=== PATIENT | female | born 1990 | race Caucasian/White ===

== ENCOUNTER 2018-10-14 01:00 | Inpatient (IN) | payer BC ==
[2018-10-14] MEDS ORDERED: fentaNYL 100 MCG/2 ML SDV ITHECAL ONE (01:54)
[2018-10-14] MEDS ORDERED: EPINEPHrine 1 MG/ML SDV ONE ×2 (01:54→04:56)
[2018-10-14] MEDS ORDERED: Misoprostol 400 MCG (4 X 100 MCG TAB) RECTAL PRN ×2 (02:20→12:17)
[2018-10-14] MEDS ORDERED: Carboprost Tromethamine 250 MCG/1 ML Amp IM PRN ×2 (02:20→12:17)
[2018-10-14] MEDS ORDERED: Ondansetron 4 MG/2 ML SDV IV PRN (02:20)
[2018-10-14] MEDS ORDERED: Sodium Chloride 0.9% 10 ML Syringe FLUSH PRN ×2 (02:20→12:17)
[2018-10-14] MEDS ORDERED: Acetaminophen 325 MG Tab PO PRN ×3 (02:20→12:45)
[2018-10-14] MEDS ORDERED: Methylergonovine 0.2 MG/1 ML Amp IM PRN (02:20)
[2018-10-14] MEDS ORDERED: Lidocaine 1% 30 ML SDV INJECT PRN (02:20)
[2018-10-14] MEDS ORDERED: Tranexamic Acid 1,000 MG in Sodium Chloride 0.9% 100 ML IV PRN ×2 (02:20→12:17)
[2018-10-14] MEDS ORDERED: Lactated Ringers 500 ML IV ONE (02:20)
[2018-10-14] MEDS ORDERED: Nalbuphine 10 MG/1 ML Vial IM STA (02:27)
[2018-10-14] MEDS ORDERED: Oxytocin/Normal Saline 30 UNIT/500 ML BAG IV SCH (02:30)
--- NOTE | 2018-10-14 04:31 | HP ---
Date: 10/14/17 CHIEF COMPLAINT: Increasing frequency and strength of contractions. SUBJECTIVE: The patient is a 27-year-old 1, para 0-0-0-0, currently at 40 weeks and 1 day gestation, based on an exact LMP of 01/05/2018. The patient had her membranes stripped at her clinic appointment this morning. She went for a long walk later and had sore and achy type pain and it felt like period cramping. She took a bath, after getting out of the bath, she was feeling contractions every couple of minutes; kind of felt like period cramping. Around 1730 tonight, they started really feeling like contractions and she was having them at 2 to 4.5 minutes apart. She had some mucousy discharge that was brown. No big gush of fluid. No bleeding. She got in the bath again when the contractions were strong and the contractions remained 2 to 3 minutes apart and felt stronger. They live 35 minutes away so they decided to come in. Denying any preeclampsia symptoms (no headaches, visual changes, edema). No vaginal bleeding. movement has remained excellent. LABS: Blood type B positive. Rubella immune. Syphilis nonreactive. Hep B nonreactive. HIV nonreactive. Gonorrhea and chlamydia negative. She had an abnormal 1 hour glucose tolerance test, 3 hour was within normal limits. Group B strep negative. Glucosuria off and on. PAST MEDICAL HISTORY: 1. Asthma, exercise-induced. 2. Irregular menstrual period, every 21 to 28, flow 7 days. This was before she was taking oral contraceptive (controlled with oral contraceptives). 3. Dysmenorrhea, controlled with oral contraceptives. 4. TMJ. 5. Chickenpox as a child. PAST SURGICAL HISTORY: [place] teeth extraction at age 16. FAMILY HISTORY: Paternal uncle, AML, leukemia. Paternal grandmother with cervical cancer. Maternal grandmother, [employer] usage. Paternal grandfather, depression. Maternal grandfather, diabetes, heart disease (pacemaker) and stroke. Father, high cholesterol, hypertension. Mother, migraine, unable to deliver vaginally, possibly from [place] exposure, reported prominent bone preventing delivery. Brother migraines. Paternal aunt with multiple sclerosis. Mother 1 spot of melanoma. Mother and maternal grandmother, hypothyroid. SOCIAL HISTORY: The patient lives with Jorge in [place]. This will be their 1st child. The patient works as an RN at [employer]. Pulse 8. MEDICATIONS: vitamin. ALLERGIES: Ceclor. REVIEW OF SYSTEMS: No shortness of breath, chest pain, headaches, change in vision, fever, vomiting, dysuria. Some nausea just started showing up with contractions. PHYSICAL EXAMINATION: Vital Signs: Pulse 77, temp 97.5, blood pressure 135/87, respiratory rate 20, heart rate 140s, category 1. Contractions every 2 minutes. General: The patient is managing contractions with Nubain currently. Desires intrathecal. HEENT: Grossly unremarkable. Neck: Supple. No adenopathy. Heart: Regular without murmur. Lungs: Clear to auscultation bilaterally. Abdomen: Gravid. Non-tender to palpation. Pelvic: Cervical exam per nurse is 3 cm dilated, 80% effaced, and -2 station. Bag of water intact on arrival. Spontaneous rupture of membranes occurred soon after arrival. Amniotic fluid was thick meconium stained. Extremities: No edema, erythema, or tenderness noted. Neurologic: Appropriate. ASSESSMENT: 1. G1, P0-0-0-0. 2. Forty weeks and 1 day gestation. 3. Full code. 4. Blood type B positive. GBS negative. Rubella immune. PLAN: The patient received Nubain and will receive an intrathecal for anesthesia as soon as possible. Anticipating vaginal delivery. We will monitor and make changes to plans when and if it becomes necessary. The patient was seen by myself and Dr. Alaina New. Assessment and plan are under advisement of Dr. New. Esteban Toledo, -[facility] /[id number] Patient seen and examined. Agree with note as scribed on my behalf by Esteban Toledo, MS3. -edge blacker 10/14/18 2321 MTDD
[2018-10-14] MEDS: Lactated Ringers 1,000 ML IV SCH ×2 (04:40→05:13)
[2018-10-14] MEDS ORDERED: fentaNYL 100 MCG/2 ML SDV ONE (04:55)
--- NOTE | 2018-10-14 05:34 | PCM.PRNOTE ---
- Free Text/Narrative Note: Requested to provide analgesia to full term patient in severe pain. Upon entering the room, patient is sitting on edge of bed complaining of severe abdominal/pelvic pain and discomfort. Procedure was discussed with patient including adverse outcomes and expectations. Pt consented to analgesia, SAB/ IT. Pt placed into a proper sitting position. Landmarks for SAB/IT were identified and marked. Hands were washed and appropriate PPE was applied. Back was prepped with betadine x3. A sterile, transparent, fenestrated drape was applied. Excess betadine was removed. Using 3 mL of a 1% lidocaine solution , a skin wheel was placed at the L2/L3 interspace. A 24 ga (4 inch) Pencan spinal needle was inserted until positive for CSF. Negative for heme or paresthesias. Injected fentanyl 30 mcg, sufentanil 25 mcg, and 8.25 mg of a 0.75% bupivacaine solution with an epi wash. Pt was placed left lateral position for approximately 20 minutes. There were zero complications or adverse outcomes. Will continue to monitor. Procedure Date & Time: 10/14/18 [id number]
[2018-10-14] MEDS ORDERED: Oxytocin 10 Units/1 ML SDV IM PRN (12:17)
[2018-10-14] MEDS ORDERED: Benzocaine/Menthol 20%-0.5% Spray 56 GM Canister TOP PRN (12:17)
[2018-10-14] MEDS ORDERED: Simethicone 80 MG Tab.Chew PO PRN (12:17)
[2018-10-14] MEDS: Ibuprofen 800 MG Tab PO PRN ×2 (13:39→21:15)
[2018-10-14] MEDS ORDERED: Zolpidem 5 MG Tab PO PRN (20:00)
[2018-10-14] MEDS: Docusate Sodium 100 MG Cap PO PRN (21:15)
[2018-10-15] MEDS: Ibuprofen 800 MG Tab PO PRN ×3 (06:15→21:55)
[2018-10-15] MEDS: Prenatal Multivitamin with Calcium/Folic Acid/Iron Tab PO SCH (08:16)
[2018-10-15] MEDS: Docusate Sodium 100 MG Cap PO PRN ×2 (08:16→21:55)
--- NOTE | 2018-10-15 10:25 | PN ---
DATE: 10/15/2018 SUBJECTIVE: Andreea is day 1 from spontaneous vaginal delivery with arrest of descent in 2nd stage of labor, requiring vacuum assistance. Delivered term female at 40 weeks and 2 days gestation, that required right posterior-lateral episiotomy. She has no complaints. She is tolerating activity, eating and urinating. She has passed flatus, but has not had a bowel movement yet. She is breast-feeding and it is going really well. She has minimal cramping. She is using ice pack pads, which help with her pain. She is also taking ibuprofen as needed. Small headache, the patient believes it is from fatigue. No changes in vision, no chest pain, no shortness of breath. OBJECTIVE: Vital Signs: Temperature 98.9, pulse rate 82, blood pressure 118/69, respiratory rate 16. General: The patient is alert, cooperative, in no acute distress. HEENT: Grossly normal. Heart: Regular rate and rhythm. Lungs: Clear to auscultation bilaterally. Abdomen: Uterus is palpated fingertip below the umbilicus. Soft abdomen. Nontender and nondistended. Extremities: No edema or erythema. Calves are nontender to palpation. Neurologic: Range of motion and strength in extremities are unremarkable. LAB: Hgb on admission 13; today 10.8 Platelets on admission: 146, today 134. ASSESSMENT: Andreea is a day 1 from spontaneous vaginal delivery with arrest of descent in 2nd stage of labor with vacuum assistance x3 to a term female infant at 40 weeks and 2 days. Required right posterior-lateral episiotomy. 1. , post vaginal delivery 2. Gestational thrombocytopenia. 3. Breast feeding mother PLAN: 1. Continue routine cares. 2. . 3. Planning for discharge tomorrow. The patient was seen today by myself and Dr. Alaina New. Assessment and plan are under advisement of Dr. Alaina New. Esteban Toledo MS-[facility] /[id number] Patient seen and examined. Agree with note as scribed on my behalf by Esteban Toledo MS3. -[facility] 10/17/18 0754 MTDD
--- NOTE | 2018-10-15 11:31 | DEL ---
DATE: 10/14/2018 PREPROCEDURE DIAGNOSES: 1. 40 and 2/7th weeks' intrauterine by LMP. 2. 1, para 0. 3. Blood type B positive, rubella immune, group B strep negative. 4. Gestational thrombocytopenia. 5. Temporomandibular joint. 6. Exercise-induced asthma. 7. Maternal exhaustion and arrest of descent as indication for vacuum assistance in stage 2. 8. Meconium-stained fluid. POSTPROCEDURE DIAGNOSES: 1. 40 and 27th weeks' intrauterine by LMP. 2. 1, now para 1-0-0-1. 3. Blood type B positive, rubella immune, group B strep negative. 4. Gestational thrombocytopenia. 5. Temporomandibular joint. 6. Exercise-induced asthma. 7. Maternal exhaustion and arrest of descent as indication for vacuum assistance. 8. Meconium-stained fluid. 9. Delivery of large for gestational age . 10.Asynclitic presentation. 11.Status post spontaneous vaginal delivery. 12.Repair of medio-lateral episiotomy. BRIEF HISTORY: The patient is a 27-year-old patient with the above-listed diagnoses, who presented to the hospital with spontaneous labor last night and went onto spontaneous rupture of membranes at 2:13 a.m. with thick meconium- stained fluid. She continued to progress nicely through labor and received an intrathecal for anesthesia when she was 5 cm dilated at around 5 a.m. and then went onto complete at 7:30. She was not feeling any pain nor did she have the ability to push well at that time, so she was allowed to labor down. Baby had intermittent Decels on about 3 occasions and decision was made to start with pushing to shorten stage II. After about the first hour of pushing, mother had significant maternal exhaustion without much further descent of the head, so vacuum assistance was felt to be indicated and beneficial for her. Exit strategy was available including going to a section if she should go on to a prolonged 2nd stage or any compromise were to develop. The patient was verbally prepared with discussion of alternatives, risks, and benefits of vacuum assistance including injury to her and/or the baby as well as other complications that would require surgical repair. Anesthesia was adequate as she was still quite numb. Probability of success was good. We were estimating an appropriate size baby and the pelvis was adequate, anticipating OA position and did not anticipate the baby was asynclitic until after the vacuum attempt had been terminated. She was +2 station. The maximum number of pop offs was predetermined as 3. Total vacuum time was 30 minutes. Pressure was maintained within the green zone and the type of kiwi was a mushroom. Exit strategy was readily available and the section team was alerted and the OR open and Dr. Welch aware that she may be called on an emergency basis. PROCEDURE DETAILS: The patient had a spontaneous vaginal delivery of a viable female in the ROP position with noted asynclitic formation of caput molding. There was a loose nuchal cord, which the baby was delivered through via somersault maneuver. was strong and had a vigorous cry; therefore, mouth and nose were suctioned and baby was dried and stimulated and placed up on mother's abdomen. After a delay, 3-vessel umbilical cord was doubly clamped and then cut and medio-lateral episiotomy with extension to 1st degree was repaired with 3-0 Vicryl in the usual fashion. Delivered over a right medio-lateral episiotomy. Placenta had been delivered by gentle cord traction and concomitant uterine massage inspected and intact. The patient tolerated procedure well. ESTIMATED BLOOD LOSS: 300 mL. COMPLICATIONS: None. FINDINGS: Viable female infant, Apgars of 7 and 9, weight 4175 g, 9 pounds 3 ounces with asynclitic OP presentation, unanticipated. [facility] /[id number] EVITA
[2018-10-16] MEDS: Ibuprofen 800 MG Tab PO PRN (08:49)
[2018-10-16] MEDS: Prenatal Multivitamin with Calcium/Folic Acid/Iron Tab PO SCH (08:49)
[2018-10-16] MEDS: Docusate Sodium 100 MG Cap PO PRN (08:49)
--- NOTE | 2018-10-17 19:48 | DISCH ---
ADMITTING DIAGNOSES: 1. A 40-2/7th weeks' intrauterine based on last menstrual period. 2. 1, para 0. 3. Gestational thrombocytopenia. 4. History of temporomandibular joint disorder. 5. Exercise-induced asthma. 6. Blood type B positive, rubella immune, and group B strep negative. DISCHARGE DIAGNOSES: 1. A 40-2/7th weeks' intrauterine based on last menstrual period. 2. 1, now para 1-0-0-1. 3. Gestational thrombocytopenia. 4. History of temporomandibular joint disorder. 5. Exercise-induced asthma. 6. Blood type B positive, rubella immune, and group B strep negative. 7. Meconium-stained fluid. 8. Status post vacuum-assisted labor in the 2nd stage, but delivery was spontaneous over mediolateral episiotomy. 9. Anemia of blood loss. BRIEF HISTORY: A 28-year-old female with the above-listed diagnoses, presented to the hospital in spontaneous labor and went on to have a spontaneous rupture of membranes with thick particulate meconium-stained fluid noted. She received an intrathecal for pain control and labor progressed nicely to complete, at which time she was pushing for just under an hour and was having significant trouble with getting the head to descend and also suffering some maternal exhaustion, so vacuum was applied and we were making progress, so baby was brought down essentially to outlet, at which time vacuum was discontinued due to time limits and she was able to continue with good pushing effort and deliver her baby vaginally over a right-sided mediolateral episiotomy. She and the baby did well. See delivery note and H and P for more details. HOSPITAL COURSE: Since delivery, the patient has been doing well. She is ambulating and tolerating regular diet. Blood flow has been as expected and just less than a period. No foul-smelling drainage or discharge. No chest pain or shortness of breath. No leg pain or edema. She is and that seems to be going well. No acute concerns at this time. DISCHARGE CONDITION: Good. PHYSICAL EXAMINATION: Vital Signs: Temperature is 98.2, pulse 78, blood pressure 132/79, respiratory rate of 16, O2 saturations 100% on room air. Heart: Regular without murmur. Lungs: Clear to auscultation. Abdomen: Soft and nontender. Fundus is firm and about 4 fingerbreadths below the umbilicus. Extremities: No edema, erythema, or tenderness noted. LABORATORY DATA: Hemoglobin is down to 10.8 from previous 13 and platelets are down to 132 from previous 146. DISPOSITION: Home with family. FOLLOWUP: She will have a 6-week followup and recheck CBC at that time, sooner if she develops any symptoms of thrombocytopenia. MEDICATIONS: Ibuprofen 800 mg every 8 hours as needed, Tylenol 650 mg every 6 hours as needed, iron 325 mg twice daily, Colace 100 mg twice daily as needed for constipation, and vitamins continue 1 daily. INSTRUCTIONS: Routine post vaginal delivery care instructions for mother were provided and her questions were answered. She understands to return if she has any fever, chills, foul-smelling drainage, discharge, uterine tenderness, or any other concerns and her questions were answered. [facility] /[id number]
== END 2018-10-16 14:45 | disposition home or self-care (01) | DRG 560 ==
LOC: DL.OBCHECK 01:00 → DL.OB 01:53 → UNDOADMOB 01:53 → INTOOBSV 01:53 → OBSVTOIN 01:53 → DL.OB 11:12 → OBSVTOIN 11:12
PROVIDERS: ADMIT Family Medicine; ATTEND Family Medicine
PROC: 10D07Z6 Extraction of Products of Conception, Vacuum, Via Natural or Artificial Opening (ICD-10-PCS; principal; 2018-10-14)
PROC: 0W8NXZZ Division of Female Perineum, External Approach (ICD-10-PCS; 2018-10-14)
PROC: 3E0R3BZ Introduction of Anesthetic Agent into Spinal Canal, Percutaneous Approach (ICD-10-PCS; 2018-10-14)
PROC: 00HU33Z Insertion of Infusion Device into Spinal Canal, Percutaneous Approach (ICD-10-PCS; 2018-10-14)
DX: O48.0 Post-term pregnancy (principal); O77.0 Labor and delivery complicated by meconium in amniotic fluid; O75.81 Maternal exhaustion complicating labor and delivery; O32.8XX0 Maternal care for other malpresentation of fetus, not applicable or unspecified; O76 Abnormality in fetal heart rate and rhythm complicating labor and delivery; O69.81X0 Labor and delivery complicated by cord around neck, without compression, not applicable or unspecified; O62.1 Secondary uterine inertia; O90.81 Anemia of the puerperium; D62 Acute posthemorrhagic anemia; Z3A.40 40 weeks gestation of pregnancy; Z37.0 Single live birth; Z88.1 Allergy status to other antibiotic agents
CPT/HCPCS: 36415; 59409; 85027; A9270-GY; J0171; J2001; J2300; J2590; J3010; J7120

== ENCOUNTER 2020-07-22 08:01 | Inpatient (IN) | payer BC ==
[2020-07-22] MEDS ORDERED: Misoprostol 25 MCG (1/4 of 100 MCG) Tab VAG PRN (08:33)
[2020-07-22] MEDS ORDERED: Sodium Chloride 0.9% 10 ML Syringe FLUSH PRN (08:33)
[2020-07-22] MEDS ORDERED: Lactated Ringers 1,000 ML IV SCH (08:45)
[2020-07-22] MEDS ORDERED: Oxytocin/Normal Saline 30 UNIT/500 ML BAG IV SCH (08:45)
[2020-07-22] MEDS: Lactated Ringers 1,000 ML IV SCH ×3 (13:37→23:34)
[2020-07-22] MEDS ORDERED: Sodium Bicarbonate 4.2% 2.5 MEQ/5 ML SDV ONE ×2 (19:44→23:42)
[2020-07-22] MEDS ORDERED: EPINEPHrine 1 MG/1 ML Amp ONE ×2 (19:44→23:42)
[2020-07-22] MEDS ORDERED: fentaNYL 100 MCG/2 ML SDV ONE ×2 (19:44→23:41)
[2020-07-22] MEDS ORDERED: Ondansetron 4 MG/2 ML SDV ONE (19:45)
[2020-07-22] MEDS ORDERED: Ondansetron 4 MG in Sodium Chloride 0.9% 50 ML IV ONE (19:55)
[2020-07-22] MEDS ORDERED: Ondansetron 4 MG/2 ML SDV IVPUSH PRN (19:57)
--- NOTE | 2020-07-22 20:06 | PCM.SN.2 ---
- Free Text/Narrative Note: Intrathecal. Sitting position, sterile prep and drape. 1% lidocaine w bicarb for skinwheal to L2 L3 interspace. Introducer, 24 ga pencan x 1. Pos CSF, neg heme, neg parasthesia. 0.1 ml PF 1:1000 epi, 20 mcg pf sufenta, 30 mcg pf fentanyl, 0.4 ml pf NS and 6 mg of 0.75% pf Marcaine injected after CSF aspiration. Pt to L lateral position. Procedure time 1944 to 2014
[2020-07-22] MEDS ORDERED: Promethazine 25 MG/ML SDV IM PRN (22:12)
--- NOTE | 2020-07-22 23:58 | PCM.SN.2 ---
- Free Text/Narrative Note: Intrathecal. Sitting position, sterile prep and drape. 1% lidocaine w bicarb for skinwheal to L2 L3 interspace. Introducer, 24 ga pencan x 1. Pos CSF, neg heme, neg parasthesia. 0.1 ml PF 1:1000 epi, 20 mcg pf sufenta, 30 mcg pf fentanyl, 0.4 ml pf NS and 6 mg of 0.75% pf Marcaine injected after CSF aspiration. Pt to L lateral position. Procedure time 2330 to 0000
[2020-07-23] MEDS ORDERED: Misoprostol 400 MCG (4 X 100 MCG TAB) RECTAL PRN (00:53)
[2020-07-23] MEDS ORDERED: Oxytocin 10 Units/1 ML SDV IM PRN (00:53)
[2020-07-23] MEDS ORDERED: Benzocaine/Menthol 20%-0.5% Spray 56 GM Canister TOP PRN (00:53)
[2020-07-23] MEDS ORDERED: Carboprost Tromethamine 250 MCG/1 ML Amp IM PRN (00:53)
[2020-07-23] MEDS ORDERED: Tranexamic Acid 1,000 MG in Sodium Chloride 0.9% 100 ML IV PRN (00:53)
[2020-07-23] MEDS ORDERED: Simethicone 80 MG Tab.Chew PO PRN (00:53)
[2020-07-23] MEDS ORDERED: Zolpidem 5 MG Tab PO PRN (00:53)
[2020-07-23] MEDS ORDERED: Acetaminophen 325 MG Tab PO PRN (00:53)
[2020-07-23] MEDS ORDERED: Sodium Chloride 0.9% 10 ML Syringe FLUSH PRN (00:53)
[2020-07-23] MEDS: Ibuprofen 800 MG Tab PO PRN ×2 (08:52→16:24)
[2020-07-23] MEDS: Docusate Sodium 100 MG Cap PO PRN ×2 (08:52→21:16)
[2020-07-23] MEDS: Prenatal Multivitamin with Calcium/Folic Acid/Iron Tab PO SCH (08:53)
[2020-07-23] MEDS: Acetaminophen 325 MG Tab PO PRN (22:15)
--- NOTE | 2020-07-23 23:38 | DEL ---
DATE: 07/23/2020 PREDELIVERY DIAGNOSES: Intrauterine at 39 weeks plus gestational age with a history of macrosomia and borderline oligohydramnios in the antepartum period, who was induced. Delivery was a normal spontaneous vaginal delivery. Delivering clinician was Dr. Tran. FINDINGS: There was a 3300 g , score 8 and 9. Small perineal laceration repaired with [id number]. ESTIMATED BLOOD LOSS: Normal for vaginal delivery. PROCEDURE IN DETAIL: The patient was induced with 1 dose of Cytotec, then Pitocin was started and artificial rupture of membranes was performed. The patient is group B strep negative. She did receive intrathecal. She proceeded to complete and was able to push the infant out without any difficulty. The shoulder was delivered with some mild traction and the was placed on the maternal abdomen. Cord was cut and clamped and the cord blood was then collected. The placenta was then delivered intact with some uterine massage and gentle traction on the cord. The uterus did become firm after the placenta was delivered with third stage Pitocin. Perineum was examined and there was a small midline laceration, which was repaired with a [id number] suture. The estimated blood loss was normal for vaginal delivery. The infant did weigh 3300 g and scores were 8 and 9 and at the end of the procedure, mom and baby were both doing well. [facility] /[id number]
[2020-07-24] MEDS: Ibuprofen 800 MG Tab PO PRN (02:24)
[2020-07-24] MEDS: Acetaminophen 325 MG Tab PO PRN (09:50)
[2020-07-24] MEDS: Prenatal Multivitamin with Calcium/Folic Acid/Iron Tab PO SCH (09:51)
[2020-07-24] MEDS: Docusate Sodium 100 MG Cap PO PRN (09:51)
--- NOTE | 2020-07-24 17:25 | PN ---
DATE: 07/24/2020 LOCATION: [facility]. SUBJECTIVE: The patient is day 1, status post vaginal delivery. Mom and baby are both doing well. Her bleeding is minimal. PHYSICAL EXAMINATION: The patient is afebrile, heart rate 58 to 76, blood pressure 115 to 136 systolic over 58 to 85 diastolic, respiratory rate 16 to 20, O2 sat 98% to 100%. The patient's fundus is firm below the umbilicus. Extremities have no tenderness, no edema. Lochia is minimal. LABORATORY DATA: The patient's blood type is B positive. She is rubella immune. The patient's pre-delivery hemoglobin was 11.7. This morning, hemoglobin is still 11.7, white blood cell count is normal, platelets are 144. ASSESSMENT AND PLAN: day 1, status post vaginal delivery. Mom and baby are both doing well. We will discharge her to home with followup in 6 weeks. [facility] /[id number]
--- NOTE | 2020-07-27 09:34 | PCM.LDHP ---
L&D History of Present Illness - General Date of Service: 07/22/20 Admit Problem/Dx: Induction of labor - History of Present Illness Introduction:: Patient admitted to L & D for induction of labor. Uncomplicated . GBS negative. Baby has been active. Denies contractions, vaginal bleeding, leakage of fluid. She has a history of macrosomia with vacuum delivery and has elected to do an induction at 39 weeks. Pain Score: 0 - Related Data Allergies/Adverse Reactions: Allergies Allergy/AdvReac Type Severity Reaction Status Date / Time cefaclor [[facility]] Allergy Hives Verified 07/22/20 08:47 Home Medications: Home Meds Mv-Mn/Iron/FA/Herbal/Digestive [ One Tablet] 1 tab PO DAILY 10/13/18 [History] Past Medical History HEENT History: Reports: Other (See Below) Other HEENT History: TMJ Respiratory History: Reports: Asthma CASING COOKER History: Reports: Musculoskeletal History: Reports: Other (See Below) Psychiatric History: Reports: None Endocrine/Metabolic History: Reports: Other (See Below) Other Endocrine/Metabolic History: thyroid nodule, removed May 2019 Hematologic History: Reports: Other (See Below) Other Hematologic History: thrombocytopenia - Infectious Disease History Infectious Disease History: Reports: Chicken Pox - Past Surgical History HEENT Surgical History: Reports: Oral Surgery Social & Family History - Family History Family Medical History: No Pertinent Family History - Tobacco Use Tobacco Use Status *Q: Never Tobacco User Second Hand Smoke Exposure: No - Caffeine Use Caffeine Use: Reports: None - Recreational Drug Use Recreational Drug Use: No H&P Review of Systems - Review of Systems: Review Of Systems: See Below General: Denies: Fever, Chills HEENT: Denies: Headaches, Visual Changes Pulmonary: Denies: Shortness of Breath, Cough Cardiovascular: Denies: Chest Pain, Edema, Lightheadedness Gastrointestinal: Denies: Diarrhea, Nausea, Vomiting Skin: Denies: Rash Neurological: Denies: Dizziness, Headache L&D Exam - Exam Exam: See Below - Vital Signs Vital Signs: Last Vital Signs Temp 98.5 F 07/24/20 08:00 Pulse 76 07/24/20 08:00 Resp 14 07/24/20 08:00 BP 121/79 07/24/20 08:00 Pulse Ox 99 07/24/20 08:00 Weight: 190 lb - OB Specific Contraction Duration (sec): 40-80 Contraction Frequency (min): 2-3 Contraction Intensity: Strong - Exam General: Alert, Oriented HEENT: Conjunctiva Clear Neck: Supple, Trachea Midline Lungs: Clear to Auscultation, Normal Respiratory Effort Cardiovascular: Regular Rate, Regular Rhythm GI/Abdominal Exam: Normal Bowel Sounds, Soft, Non-Tender Extremities: Non-Tender, No Pedal Edema Skin: Warm, Dry Neurological: Reflexes Equal Bilateral - Patient Data Result Diagrams: 07/24/20 05:55 - Problem List (1) History of vacuum extraction assisted delivery SNOMED Code(s): 726019454 ICD Code: Z87.59 - PERSONAL HISTORY OF COMP OF PREG, CHLDBRTH AND THE PUERP Status: Acute (2) Term SNOMED Code(s): 75362732 ICD Code: Z34.90 - ENCNTR FOR SUPRVSN OF NORMAL , UNSP, UNSP TRIMESTER Status: Acute Problem List Initiated/Reviewed/Updated: Yes Assessment/Plan Comment:: Admit for induction of labor. Dr. Tran will be attending provider. Start with cytotec X1. AROM when able. Pitocin as needed. GBS negative. Anticipate vaginal delivery. Mary Brown MD
== END 2020-07-24 13:00 | disposition home or self-care (01) | DRG 560 ==
LOC: DL.OBCHECK 08:01 → DL.OB 08:33 → OBSVTOIN 07-23 00:41
PROVIDERS: ADMIT Obstetrics & Gynecology; ATTEND Obstetrics & Gynecology
PROC: 10E0XZZ Delivery of Products of Conception, External Approach (ICD-10-PCS; principal; 2020-07-23)
PROC: 10907ZC Drainage of Amniotic Fluid, Therapeutic from Products of Conception, Via Natural or Artificial Opening (ICD-10-PCS; 2020-07-23)
PROC: 0HQ9XZZ Repair Perineum Skin, External Approach (ICD-10-PCS; 2020-07-23)
DX: O80 Encounter for full-term uncomplicated delivery (principal); Z3A.39 39 weeks gestation of pregnancy; Z37.0 Single live birth
CPT/HCPCS: 01967; 36415; 59409; 85027; A9270-GY; J2405; J2590; J7120